=== PATIENT | male | born 1990 | race Caucasian/White ===

== ENCOUNTER 2016-08-28 15:14 | Emergency (ER) | payer SELFPAY ==
[2016-08-28 15:45] VITALS: BP 121/74
--- NOTE | 2016-08-28 16:16 | UC ---
Skin Complaint HPI - HPI Summary HPI Summary: had been bitten by a Tick 8-10 days ago---then at site red oval rash that has been getting worse over the past 4 days does have some central clearing, is warm to touch - History of Current Complaint Chief Complaint: UCS[facility] Time Seen by Provider: 08/28/16 16:10 Stated Complaint: INSECT BITE RED RING Hx Obtained From: Patient Onset/Duration: Gradual Onset, Lasting Days, Still Present Skin Exposure Onset/Duration: Days Ago - 8 Timing: Constant Onset Severity: Mild Current Severity: Moderate Pain Intensity: 1 Pain Scale Used: 0-10 Numeric Location: Discrete - right anterior shoulder Character: Redness Aggravating: Nothing Alleviating: Nothing Associated Signs & Symptoms: Positive: Negative Related History: Possible Reaction to: Insect - Allergy/Home Medications Allergies/Adverse Reactions: Allergies Allergy/AdvReac Type Severity Reaction Status Date / Time No Known Allergies Allergy Verified 08/28/16 15:44 Home Medications: Home Medications diPHENhydraMINE 2% CREAM(NF) [Benadryl 2% CREAM (NF)] PRN 08/28/16 [History] Review of Systems Constitutional: Negative Skin: Rash Eyes: Negative ENT: Negative Respiratory: Negative Cardiovascular: Negative Gastrointestinal: Negative Genitourinary: Negative Motor: Negative Neurovascular: Negative Musculoskeletal: Negative Neurological: Negative Psychological: Negative All Other Systems Reviewed And Are Negative: Yes PMH/Surg Hx/FS Hx/Imm Hx Previously Healthy: Yes - Surgical History Surgical History: Yes Surgery Procedure, Year, and Place: HERNIA REPAIR - Family History Known Family History: Positive: None - Social History Occupation: Employed Full-time Lives: With Family Alcohol Use: Occasionally Substance Use Type: None Smoking Status (MU): Never Smoked Tobacco Physical Exam Triage Information Reviewed: Yes Appearance: Well-Appearing, No Pain Distress, Well-Nourished Vital Signs: Initial Vital Signs Temp 98.6 F 08/28/16 15:41 Pulse 62 08/28/16 15:41 Resp 16 08/28/16 15:41 BP 121/74 08/28/16 15:41 Pulse Ox 100 08/28/16 15:41 Vital Signs Reviewed: Yes Eye Exam: Normal Eyes: Positive: Conjunctiva Clear ENT Exam: Normal ENT: Positive: Normal ENT inspection, Hearing grossly normal. Negative: Nasal congestion, Nasal drainage, Trismus, Muffled/hoarse voice Dental Exam: Normal Neck exam: Normal Neck: Positive: Supple, Nontender, No Lymphadenopathy Respiratory Exam: Normal Respiratory: Positive: Chest non-tender, No respiratory distress, No accessory muscle use Cardiovascular Exam: Normal Cardiovascular: Positive: RRR, Pulses Normal, Brisk Capillary Refill Musculoskeletal Exam: Normal Musculoskeletal: Positive: Strength Intact, ROM Intact, No Edema Neurological Exam: Normal Neurological: Positive: Alert, Muscle Tone Normal Psychological Exam: Normal Skin Exam: Other Skin: Positive: Other - 6x3 inch rash on right anterior should some central clearing warm to touch Course/Dx - Course Course Of Treatment: lyme serology, Doxycycline, follow with pcp - Differential Diagnoses - Skin Complaint Differential Diagnoses: Cellulitis, Foreign Body, Impetigo, Local Allergic Reaction, Tick Born Illness - Diagnoses Provider Diagnoses: Erythema migranes Discharge - Discharge Plan Condition: Stable Disposition: HOME Prescriptions: DOXYcycline CAP(*) [DOXYcycline 100MG CAP(*)] 100 mg PO BID #[id number] cap Patient Education Materials: Lyme Disease (ED), Tick Bite (ED) Referrals: Andrei Conley MD [Primary Care Provider] - 1 Week
== END 2016-08-28 16:31 | disposition home or self-care (01) ==
LOC: UCEAST 15:14
DX: A26.0 Cutaneous erysipeloid (principal)
CPT/HCPCS: 86618; 99212; G0463